=== PATIENT | female | born 1975 | race Caucasian/White ===

== ENCOUNTER 2017-01-12 12:20 | Emergency (ER) | payer BC, OTHER ==
--- NOTE | 2017-01-12 13:07 | PHYS DOC ---
Adult General Chief Complaint Chief Complaint: headache HPI HPI Patient is a 41 year old female brought to the ED from the chiropractor's office by ambulance with a complaint of a severe headache. 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 She states that there was a medical person on the sideline and she "failed the concussion test" she was taken to urgent care where she was checked out and they told her that she probably had a concussion and she should stay home and rest for a couple of days. She did that, she took off work on Tuesday and Tuesday and spent most of those days in bed. Today, Tuesday, she tried to go back to work but by me sometime in the morning she developed a severe headache. She made an appointment at the chiropractor and as she was driving where she became very nauseated and her headache was worse while she was sitting up driving. She got there to the chiropractor's office and was doing some paperwork when she was so nauseated and had such a bad headache that she had to lay down. At that point someone decided that she shouldn't drive and called 911. She has not vomited but she felt very close to vomiting. Her headache is quite a bit better when she lays down, quite a bit worse when she sits or stands up. PCP Dr. Kaur at [facility] She has asthma and uses Symbicort and has not had any problems lately with her asthma Review of Systems Review of Systems Constitutional: Denies fever or chills [] Eyes: Denies change in visual acuity, redness, or eye pain [] HENT: Denies nasal congestion or sore throat [] Respiratory: Denies cough or shortness of breath [] Cardiovascular: Denies chest pain GI: As in history of present illness, nausea but no vomiting : Denies Musculoskeletal: She has tailbone pain, back pain, which she attributes to the fall Integument: Denies rash or skin lesions [] Neurologic: As in history of present illness Allergies Allergies Allergies Coded Allergies Type Severity Reaction Last Updated Verified No Known Drug Allergies 01/12/17 No Physical Exam Physical Exam Constitutional: Well developed, well nourished, no acute distress, non-toxic appearance. Alert, ambulated to the bathroom and back without assistance, mentating normally. HENT: Normocephalic, atraumatic, bilateral external ears normal, nose normal. [] Eyes: PERRLA, EOMI, no nystagmus, conjunctiva normal, no discharge. [] Neck: Normal range of motion, no tenderness, supple, no stridor. [] Cardiovascular:Heart rate regular rhythm, no murmur [] Lungs & Thorax: Bilateral breath sounds clear to auscultation [] Skin: Warm, dry, no erythema, no rash. [] Extremities: No tenderness, no cyanosis, no clubbing, ROM intact, no edema. [] Neurologic: Alert and oriented X 3, normal motor function, normal sensory function, no focal deficits noted. [] Current Patient Data Vital Signs Vital Signs Date Time Temp Pulse Resp B/P Pulse Ox O2 Delivery O2 Flow Rate FiO2 01/12/17 12:36 98.0 67 18 112/72 100 Room Air 98.0 Lab Values Laboratory Tests Test 01/12/17 12:42 POC Urine HCG, Qualitative Hcg negative (Negative) EKG EKG [] Radiology/Procedures Radiology/Procedures CT scan of the head read by the radiologist no acute findings. [] Course & Med Decision Making Course & Med Decision Making Pertinent Labs and Imaging studies reviewed. (See chart for details) 41-year-old lady who had a significant head injury 5 days ago where she fell while figure skating, landed on her back and hit her head, with loss of consciousness, has continued to have symptoms of headache and nausea which are worse today after she went back to work. I advised her we will check a CT scan today, she is agreeable to that plan. I offered her medication for pain and nausea but she states as long as she is laying down and she isn't nauseated and her headache isn't too bad, she rather hold off on any medications at this time. CT scan negative. [] Dragon Disclaimer Dragon Disclaimer This electronic medical record was generated, in whole or in part, using a voice recognition dictation system. Departure Departure Impression: Primary Impression: Concussion Additional Impression: Post concussive syndrome Disposition: 01 HOME, SELF-CARE Condition: STABLE Patient Instructions: Concussion and Brain Injury, [id number] Additional Instructions: CT scan of the head is negative for any bleeding or bruising of the brain. Continue to rest at home in a dark quiet room until better. If not significantly better in 3-5 days, call your doctor's office to inquire how they want you to be rechecked. While recovering, don't read or watch TV. You want to let your brain rest. You may take ibuprofen or Tylenol for pain as needed. Lay around, drink plenty of fluids, sleep if you can. Problem Qualifiers RENEE BREWER MD Jan 12, 2017 13:07
--- NOTE | 2017-01-12 13:39 | RAD ---
CT of the head without contrast, 01/12/2017: History: Head injury The ventricles are within normal limits in size. There is no shift of the midline structures. There is no evidence of acute intracranial hemorrhage or mass effect. IMPRESSION: No acute intracranial abnormality is detected. PQRS Compliance Statement: One or more of the following individualized dose reduction techniques were utilized for this examination: 1. Automated exposure control 2. Adjustment of the mA and/or kV according to patient size 3. Use of iterative reconstruction technique
[2017-01-12 13:50] VITALS: BP 110/69
== END 2017-01-12 14:00 | disposition home or self-care (01) ==
LOC: ER 12:20
DX: S06.0X9A Concussion with loss of consciousness of unspecified duration, initial encounter (principal); F07.81 Postconcussional syndrome; J45.909 Unspecified asthma, uncomplicated; V00.131A Fall from skateboard, initial encounter; Y93.51 Activity, roller skating (inline) and skateboarding; Y99.8 Other external cause status; Y92.89 Other specified places as the place of occurrence of the external cause
CPT/HCPCS: 70450; 81025; 99284-25